=== PATIENT | female | born 1985 | race Caucasian/White ===

== ENCOUNTER 2017-05-13 08:18 | Inpatient (IN) | payer MEDICAID ==
[~2017-05-13] VITALS: Ht 147.3 cm; Wt 63.1 kg
[2017-05-13 08:52] VITALS: BP 106/61; PULSE 64; Ht 147.3 cm; Wt 63.1 kg
[2017-05-13] MEDS ORDERED: PRENAT PO (08:54)
[2017-05-13] MEDS ORDERED: CARBOPROST 250 MCG INJ IM PRN ×2 (11:00→18:00)
[2017-05-13] MEDS ORDERED: OXYTOCIN 30 UNITS/LR 500 ML IV PRN ×2 (11:00→18:00)
[2017-05-13] MEDS ORDERED: LIDOCAINE 1% (MPF) 30 ML INJ INJ PRN (11:00)
[2017-05-13] MEDS ORDERED: OXYTOCIN 30 UNITS/LR 500 ML IV SCH (11:00)
[2017-05-13] MEDS ORDERED: METHYLERGONOVINE 0.2 MG INJ IM PRN ×2 (11:00→18:00)
[2017-05-13] MEDS ORDERED: BUTORPHANOL 2 MG INJ IV PRN ×2 (11:00)
[2017-05-13] MEDS ORDERED: LACTATED RINGER'S 1,000 ML IV PRN (11:00)
[2017-05-13] MEDS ORDERED: MISOPROSTOL 200 MCG TAB PR PRN ×2 (11:00→18:00)
[2017-05-13] MEDS: LACTATED RINGER'S 1,000 ML IV SCH ×4 (11:23→13:01)
[2017-05-13 12:02] LABS: BASOPHILS % 0.2 % (0.0-2.0); EOSINOPHILS % 0.2 % (0.0-7.0); HEMATOCRIT 39.7 % (37.0-47.0); HEMOGLOBIN 13.8 g/dl (12.0-16.0); LYMPHOCYTES # 1.1 10^3/ul (0.8-2.9); MEAN CORPUSCULAR HEMOGLOBIN 32.7 pg (29.0-33.0); MEAN CORPUSCULAR HGB CONC 34.8 g/dl (32.0-37.0); MEAN CORPUSCULAR VOLUME 94.1 fl (82.0-101.0); MEAN PLATELET VOLUME 11.2 fl (7.4-10.4); MONOCYTE # 0.5 10^3/ul (0.3-0.9); MONOCYTES % 4.2 % (0.0-11.0); NEUTROPHILS % 84.7 % (39.0-77.0); PLATELET COUNT 209 10^3/UL (140-415); RED BLOOD COUNT 4.22 10^6/ul (4.20-5.40); RED CELL DISTRIBUTION WIDTH 13.4 % (11.5-14.5); WHITE BLOOD COUNT 10.8 10^3/ul (4.8-10.8)
[2017-05-13 12:08] LABS: INR 0.91; PROTIME 12.3 Sec (12.2-14.2)
[2017-05-13 12:09] LABS: PARTIAL THROMBOPLASTIN TIME 25.3 Sec (25.0-35.0)
[2017-05-13] MEDS ORDERED: FENTAnyl 2MCG/ML-ROPIV 0.2% 100 ML ONE (12:37)
[2017-05-13] MEDS ORDERED: NALOXONE (0.4 MG/ML) INJ IV PRN (13:00)
[2017-05-13] MEDS ORDERED: FENTAnyl 2MCG/ML-ROPIV 0.2% 100 ML BAG EPI SCH (13:00)
--- NOTE | 2017-05-13 16:25 | HP ---
Date/Time of Note Date/Time of Note DATE: 05/13/17 TIME: 16:24 OB - History Hx of Present Chief Complaint: contractions Estimated Due Date: May 20, 2017 : 1 Para: 0 Spontaneous : 0 Therapeutic : 0 Care: Good Care Ultrasounds: Normal mid trimester US Obstetrical Complications: None Medical Complications: None Past Family/Social History * Past Medical, Surgical, Family and Obstetric Histories reviewed from chart. GBS Status: Negative OB Admission Exam Vital Signs Vital Signs Vital Signs Date Time Temp Pulse Resp B/P Pulse Ox O2 Delivery O2 Flow Rate FiO2 05/13/17 08:52 98.5 64 106/61 Physical Exam HEENT: WNL Heart: Rhythm Normal Lungs: Clear, Equal Abdomen: WNL Extremities: Normal Reflexes: Normal Cervical Dilatation: 1cm Effacement: 100% Membranes: Intact Heart Rate: 130's Accelerations: Accelerations Present Decelerations: No Decelerations Varibility: Moderate Contractions on Admission: < 5 Minutes Apart Last 72 hours Lab Results CBC & BMP 05/13/17 11:25 OB Assessment/Plan Reason for admission: active labor Plan: Expectant Management DANILO GRIFFITHS MD May 13, 2017 16:25
[2017-05-13] MEDS: OXYTOCIN 30 UNITS/LR 500 ML IV SCH ×2 (16:43→16:51)
--- NOTE | 2017-05-13 17:19 | LDN ---
Date/Time of Note Date/Time of Note DATE: 05/13/17 TIME: 17:17 Delivery Summary Weeks of Gestation 39 weeks Placenta Delivered: Spontaneously Meconium: none Episiotomy: No Perineal laceration: 1 Laceration repair: First degree laceration repaired with 3-0 Vicryl and 2-0 chromic. Anesthesia type: Epidural Estimated blood loss: 400 Sponge & Needle done & correct: Yes All needle counts correct: Yes Any foreign bodies felt in the: No Problems: Infant Delivery Information Sex Sex: female Apgars 1 Minute: 7 5 Minute: 9 Suctioning Nose & mouth suctioned at nick: Yes Delee suction performed: No Umbilical Cord Umbilical cord with: 3 Vessels Cord presentations: no nuchal cord Cord Blood was obtained: Yes Mother & Baby Disposition Disposition Mom & Baby to Maternity; Good: Yes DANILO GRIFFITHS MD May 13, 2017 17:19
[2017-05-13] MEDS: LACTATED RINGER'S 1,000 ML IV* SCH (17:41)
[2017-05-13] MEDS ORDERED: DIBUCAINE 1% 30 GM OINT PR PRN (18:00)
[2017-05-13] MEDS ORDERED: LANOLIN 7 GM TUBE TOP PRN (18:00)
[2017-05-13] MEDS ORDERED: ACETAMINOPHEN 325 MG TAB PO PRN (18:00)
[2017-05-13] MEDS ORDERED: HYDROCODONE/APAP (5/325) TAB PO PRN (18:00)
[2017-05-13] MEDS: IBUPROFEN 600 MG TAB PO SCH (18:00)
[2017-05-13 18:45] VITALS: BP 108/53; PULSE 73; RESP 19
[2017-05-13 20:15] VITALS: BP 108/53; PULSE 73; RESP 18
[2017-05-13] MEDS: WITCH HAZEL/GLYCERIN PAD PR PRN (20:15)
[2017-05-13] MEDS: BENZOCAINE 20% 56 ML SPRAY TOP PRN (20:16)
[2017-05-13] MEDS: SENNA/DOCUSATE NA (8.6MG/50MG) TAB PO SCH (21:42)
[2017-05-14] MEDS: IBUPROFEN 600 MG TAB PO SCH ×5 (00:10→23:32)
[2017-05-14 00:16] VITALS: BP 95/55; PULSE 69; RESP 18
[2017-05-14] MEDS: LACTATED RINGER'S 1,000 ML IV* SCH ×2 (01:41→09:41)
[2017-05-14 04:15] VITALS: BP 99/54; PULSE 63; RESP 18
[2017-05-14 08:30] VITALS: BP 93/67; RESP 17
[2017-05-14 08:41] LABS: BASOPHILS % 0.2 % (0.0-2.0); EOSINOPHILS # 0.1 10^3/ul (0.0-0.5); EOSINOPHILS % 0.5 % (0.0-7.0); HEMATOCRIT 33.9 % (37.0-47.0); HEMOGLOBIN 11.7 g/dl (12.0-16.0); LYMPHOCYTES # 1.3 10^3/ul (0.8-2.9); LYMPHOCYTES % 9.8 % (15.0-51.0); MEAN CORPUSCULAR HEMOGLOBIN 33.1 pg (29.0-33.0); MEAN CORPUSCULAR HGB CONC 34.5 g/dl (32.0-37.0); MEAN CORPUSCULAR VOLUME 95.8 fl (82.0-101.0); MEAN PLATELET VOLUME 10.8 fl (7.4-10.4); MONOCYTE # 0.8 10^3/ul (0.3-0.9); MONOCYTES % 5.9 % (0.0-11.0); NEUTROPHILS % 82.9 % (39.0-77.0); PLATELET COUNT 178 10^3/UL (140-415); RED BLOOD COUNT 3.54 10^6/ul (4.20-5.40); RED CELL DISTRIBUTION WIDTH 13.6 % (11.5-14.5); WHITE BLOOD COUNT 13.1 10^3/ul (4.8-10.8)
[2017-05-14] MEDS: SENNA/DOCUSATE NA (8.6MG/50MG) TAB PO SCH ×2 (09:22→21:15)
[2017-05-14 12:00] VITALS: BP 99/62; PULSE 77; RESP 17
[2017-05-14 16:00] VITALS: BP 92/55; PULSE 64; RESP 17
--- NOTE | 2017-05-14 18:22 | DS ---
Date/Time of Note Date/Time of Note DATE: 05/14/17 TIME: 18:22 Obstetrical Discharge Record Final Diagnosis Final Diagnosis: Term delivered Vaginal Delivery Obstetrical Delivery: Spontaneous Condition on Discharge Physical Assessment Voiding: Yes Bowel Movement: Yes Breast: Soft, non-tender Fundus: Firm Calf Tenderness: No Patient Condition: Stable DANILO GRIFFITHS MD May 14, 2017 18:22
[2017-05-14 20:30] VITALS: BP 102/58; PULSE 71; RESP 18
[2017-05-15 04:10] VITALS: BP 99/58; PULSE 64; RESP 18
[2017-05-15] MEDS: IBUPROFEN 600 MG TAB PO SCH ×2 (05:42→11:50)
[2017-05-15 08:30] VITALS: BP 109/54; PULSE 66; RESP 18
[2017-05-15] MEDS ORDERED: DIPHTH/TET/ACEL PERTUSS (ADULT) 0.5 ML VIAL IM* ONE (09:00)
[2017-05-15] MEDS: SENNA/DOCUSATE NA (8.6MG/50MG) TAB PO SCH (10:09)
[2017-05-15] MEDS: BENZOCAINE 20% 56 ML SPRAY TOP PRN (13:09)
[2017-05-15] MEDS: WITCH HAZEL/GLYCERIN PAD PR PRN (13:09)
== END 2017-05-15 16:00 | disposition home or self-care (01) | DRG 775 ==
LOC: OBT 08:18 → L-D 08:19 → OBT 10:50 → L-D 10:50 → PP1 18:38
PROVIDERS: ADMIT Obstetrics & Gynecology; ATTEND Obstetrics & Gynecology
PROC: 10E0XZZ Delivery of Products of Conception, External Approach (ICD-10-PCS; principal; 2017-05-13)
PROC: 0HQ9XZZ Repair Perineum Skin, External Approach (ICD-10-PCS; 2017-05-13)
DX: O70.0 First degree perineal laceration during delivery (principal); Z37.0 Single live birth; Z3A.39 39 weeks gestation of pregnancy
CPT/HCPCS: 62319; 85025; 85610; 85730; 86592; 86703; 86900; 86901; 87340; 90715; 99464; G0463; J0595; J2590; J3010; J7120